=== PATIENT | female | born 1930 | race Caucasian/White ===

== ENCOUNTER → 2017-05-28 | Outpatient (CLI) | payer OTHER, MEDICARE ==
[~2017-05-28] MED LIST: ADVAIR HFA115 MCG/21 INH; AMARYL2 MG PO; ASPIR 8181 MG PO; CALCIUM 600 +1 EAC1 PO; ENOXAPARIN30 MG/0.1 SUBQ; FISH OIL 1,001000 M2 PO; IRBESARTAN150 MG PO; KLOR-CON 1010 MEQ PO; MAGOX 400400 MG PO; METFORMIN HCL500 MG PO; NOVOLOG100 UNIT/1 SUBQ; OMEPRAZOLE40 MG PO; SIMVASTATIN40 MG PO; SLO-NIACIN500 MG PO; TEARS NATURALE1 EACH OPHTHALMIC; TUSSIN COUGH15 MG; VITAMIN D1000 UNI1 PO; WELLBUTRIN XL300 MG PO; ZOCOR20 MG PO
== END ==
LOC: RAD 02:58
DX: Z12.31 Encounter for screening mammogram for malignant neoplasm of breast (principal)

== ENCOUNTER 2018-11-04 15:12 | Emergency (ER) | payer OTHER, MEDICARE ==
[~2018-11-04] VITALS: Ht 157.5 cm; Wt 65.8 kg
[2018-11-04] MEDS ORDERED: TRAMADOL 50 MG50 MG PO (17:06)
[2018-11-04] MEDS ORDERED: AUGMENTIN 500-1 EACH PO (17:06)
[2018-11-04 17:09] LABS: HEMATOCRIT 35.9 % (37.0-47.0); HEMOGLOBIN 11.9 gm/dL (12.0-15.0); MCH 29.6 pg (26.0-34.0); MCHC 33.1 g/dL (28.0-37.0); MCV 89.5 fL (80.0-100.0); PLATELET COUNT 223 thou/uL (150-400); RBC 4.01 mil/uL (4.20-5.00); RDW 14.8 % (10.5-14.5); WBC 7.3 thou/uL (4.0-11.0)
[2018-11-04 17:28] LABS: CALCIUM 10.1 mg/dL (8.5-10.1); CREATININE 1.1 mg/dL (0.6-1.0); POTASSIUM 3.8 mmol/L (3.5-5.1)
[2018-11-04 17:30] VITALS: BP 163/81
[2018-11-04 17:33] LABS: ALBUMIN 3.6 g/dL (3.4-5.0); TOTAL BILIRUBIN 0.3 mg/dL (<0.1-1.0); TOTAL PROTEIN 7.4 g/dL (6.4-8.2)
[2018-11-04 17:37] LABS: ANISOCYTOSIS 1+
== END 2018-11-04 19:46 | disposition home or self-care (01) ==
LOC: ER 15:12
PROVIDERS: Emergency Medicine
DX: L03.116 Cellulitis of left lower limb (principal); I10 Essential (primary) hypertension; J45.909 Unspecified asthma, uncomplicated; K21.9 Gastro-esophageal reflux disease without esophagitis; E11.9 Type 2 diabetes mellitus without complications; Z86.718 Personal history of other venous thrombosis and embolism; Z88.5 Allergy status to narcotic agent; Z96.651 Presence of right artificial knee joint; Z79.4 Long term (current) use of insulin

== ENCOUNTER 2020-05-26 08:23 | Inpatient (IN) | payer OTHER, MEDICARE ==
[~2020-05-26] VITALS: Ht 154.9 cm; Wt 80.1 kg
[2020-05-26 08:23] VITALS: BP 146/80
[~2020-05-26 08:23] MED LIST changes: +AUGMENTIN 500-1 EACH PO; +TRAMADOL 50 MG50 MG PO
[2020-05-26 09:17] LABS: ABSOLUTE NEUTROPHILS 4.3 thou/uL (1.4-8.2); BASOPHILS 0.3 % (0.0-2.0); HEMATOCRIT 33.8 % (37.0-47.0); LYMPHOCYTES 12.1 % (24.0-44.0); MCH 27.3 pg (26.0-34.0); MCHC 32.4 g/dL (28.0-37.0); MCV 84.1 fL (80.0-100.0); MONOCYTES 8.2 % (1.0-8.0); PLATELET COUNT 184 thou/uL (150-400); POLYS 79.4 % (36.0-66.0); RBC 4.02 mil/uL (4.20-5.00); RDW 15.3 % (10.5-14.5); WBC 5.4 thou/uL (4.0-11.0)
[2020-05-26 10:45] LABS: CALCIUM 9.6 mg/dL (8.5-10.1); CREATININE 1.1 mg/dL (0.6-1.0)
[2020-05-26 10:46] LABS: POTASSIUM 3.9 mmol/L (3.5-5.1)
[2020-05-26 11:02] LABS: ALBUMIN 3.4 g/dL (3.4-5.0); TOTAL BILIRUBIN 0.4 mg/dL (0.2-1.0); TOTAL PROTEIN 7.6 g/dL (6.4-8.2); TROPONIN-I 0.22 ng/mL (<0.06)
[2020-05-26 12:17] LABS: ALBUMIN 3.4 g/dL (3.4-5.0); TOTAL PROTEIN 7.5 g/dL (6.4-8.2)
[2020-05-26 13:12] LABS: TSH 0.692 uIU/mL (0.358-3.740)
[2020-05-26 14:19] VITALS: BP 141/62
[2020-05-26 14:46] VITALS: BP 141/62
[2020-05-26 15:32] VITALS: BP 164/76
--- NOTE | 2020-05-26 16:04 | EKG ---
[facility] [place] [address] ELECTROCARDIOGRAM REPORT Name: SANDRA LORENZANA Room #: 351-P ADM IN M.R.#: [id number] Admission: 05/26/20 Attend Phys: Charles Mcleod MD Discharge: Date of : 32 Report #: [id number] THIS REPORT FOR: cc: Luis Lazo,Spenser Lewis MD [facility] THIS REPORT FOR: //name// [facility] ED Test Date: 2020-05-26 Test Time: 08:50:17 Pat Name: SANDRA LORENZANA Department: Room: 351 Gender: F Editor: KF : 1930 Requested By: Ehsan Alvarenga Order Number: [id number] MD: Spenser Gillette Measurements Intervals [place] Rate: 88 P: 23 FL: 180 QRS: 4 QRSD: 82 T: 4 QT: 352 QTc: 426 Interpretive Statements Sinus arrhythmia Probable left atrial enlargement Borderline T wave abnormalities Compared to ECG 08/15/2014 14:49:06 T-wave abnormality now present Sinus rhythm no longer present Electronically Signed On 05-26-2020 16:04:01 CDT by Spenser Gillette [email or web address] <ELECTRONICALLY SIGNED> By: Spenser Gillette MD, FACC 05/26/20 1604 0850 Spenser Gillette MD, [facility] /E[facility]
[2020-05-26 16:58] VITALS: BP 164/76
--- NOTE | 2020-05-26 19:14 | NUR ---
PATIENT ADMITTED TO ROOM AT THIS TIME. SHE IS ALERT ORIENTED TO SELF. DOES NOT SEEM TO BE IN PAIN OR DISTRESS. PLEASANT WITH CARE. RESPIRATONS ARE EVEN AND NON LABORED. WILL CONT WITH PLAN OF CARE.
[2020-05-26 19:15] VITALS: BP 161/76
[2020-05-27 03:58] VITALS: BP 154/63
[2020-05-27 05:56] LABS: HEMOGLOBIN 10.4 gm/dL (12.0-15.0); MCH 26.8 pg (26.0-34.0); MCHC 31.6 g/dL (28.0-37.0); MCV 84.6 fL (80.0-100.0); RBC 3.9 mil/uL (4.20-5.00); RDW 15.7 % (10.5-14.5); WBC 5.6 thou/uL (4.0-11.0)
[2020-05-27 06:49] LABS: CALCIUM 8.5 mg/dL (8.5-10.1); MAGNESIUM 1.8 mg/dL (1.8-2.4); POTASSIUM 3.7 mmol/L (3.5-5.1)
[2020-05-27 08:21] VITALS: BP 186/70
--- NOTE | 2020-05-27 08:54 | NUR ---
WOUND CARE CONSULT; DUE TO COVID PRECAUTIONS LIMITED ASSESSEMENT, DISCUSSED SKIN/WOUND STATUS W/ BAG SEWER FCO, STATES PT HAS NO WOUNDS, SOME REDDNESS SACRAL AREA, NO PHOTO ON CHART, SUGGESTED TO TAKE PHOTO TODAY, LIMITED MOBILITY, NEED FOR LOW AIR LOSS PUMP TO BED, AND PROTECTIVE CREAM, IE Z GUARD PRN SACRAL AREA, BAG SEWER UNSURE IF PT INCONT RECOMMENDATIONS; ORDERED LOW AIR LOSS PUMP FOR BED, ZGUARD PRN SACRAL AREA, ENCOURAGE TURNING PRESSURE RELIEF, OFF LOADING, TO RECONSULT DEHYDROGENATION CONVERTER OPERATOR IF SKIN BREAKDOWN PRESENT BAG SEWER AWARE
--- NOTE | 2020-05-27 09:27 | NUR ---
Nutrition: Low january score indicated however pt with no open wounds. + redness to sacrum. Pt admit post syncope,fall, rhabdomyolosis, elevated Troponin. Cardiology/neuro consult. Pt hx of DM, dementia, HTN. From [facility] facility. No intake records yet and nsg reports pt has been sleepy at breakfast time. Did not visit due to COVID + status. No weight hx. Due to K+, BUN, creat all WNL, would rec D/C renal restrictions and just order Heart healthy. BG well controlled. Offer Glucerna daily til po trends identified. Consider low risk at this time.
[2020-05-27 12:07] VITALS: BP 146/71
[2020-05-27 12:42] LABS: TROPONIN-I 0.24 ng/mL (<0.06)
[2020-05-27 15:14] VITALS: BP 140/55
--- NOTE | 2020-05-27 15:31 | NUR ---
PT ADMITTED RELATED TO COVID +, UNWITNESSED FALL, RHABDO. CM REVIEWED CHART AND SPOKE WITH CARE TEAM. CM ATTEMPTED PC TO PT'S ROOM WIHT NO ANSWER. CM ATTEMPTED PC TO PT'S SON IN [place] WITH NO ANSWER AND NO OPTION FOR VM. CM CALLED AND SPOKE WITH PT'S SISTER WHO WAS LISTED EMERGANCY CONTACT. SHE INDICATED [facility] SHE INDICATED THAT [facility] HAD BEEN GOING TO START HH SERVICES WITH PT PRIOR TO ADMISSION. SHE INDICATED THAT PT HAD A 4WW FOR HOME USE AND THAT SHE HADN'T SPOKEN TO PT IN A WHILE PT'S HAS TROUBLE WITH HER CELL PHONE AND SHE CAN'T VISIT PT. 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 SHE PROVIDED PHONE NUMBER AND CONTACT FOR [facility] . PT AND OT WORKED WITH PT AND THEY ARE [facility] POST ACUTE CARE STAY UPON DC. CM TO CONTINUE TO TRY TO REACH SON NÉSTOR PHAM TO DISCUSS POSSIBLE SNF OPTIONS.
--- NOTE | 2020-05-27 19:00 | NUR ---
DR ENGLE CALLED, ORDERED TO HOLD THE GLIMAPRIDE. SECONDARY TO LOW BLOOD SUGARS. ORDERED TO DECREASE THE IV FLUIDS TO 75/HR
[2020-05-27 20:03] VITALS: BP 154/75
[2020-05-28 03:16] VITALS: BP 154/75
[2020-05-28 07:36] LABS: HEMATOCRIT 34.5 % (37.0-47.0); HEMOGLOBIN 10.9 gm/dL (12.0-15.0); MCH 26.6 pg (26.0-34.0); MCHC 31.5 g/dL (28.0-37.0); MCV 84.5 fL (80.0-100.0); RBC 4.09 mil/uL (4.20-5.00); RDW 15.8 % (10.5-14.5); WBC 6.1 thou/uL (4.0-11.0)
--- NOTE | 2020-05-28 07:43 | NUR ---
MORE STRONG TONIGHT. TALKING MORE, STILL CONFUSED. IV access lost early am. unablt to get access. iv therapy message left. careplan reveiwed
[2020-05-28 07:49] LABS: CREATININE 0.7 mg/dL (0.6-1.0); MAGNESIUM 1.7 mg/dL (1.8-2.4); POTASSIUM 3.7 mmol/L (3.5-5.1)
[2020-05-28 11:44] VITALS: BP 135/77
[2020-05-28 12:41] LABS: TROPONIN-I 0.29 ng/mL (<0.06)
[2020-05-28 15:16] VITALS: BP 151/72
--- NOTE | 2020-05-28 18:03 | NUR ---
RN HAS ASSUMED PT'S CARE AT 0700AM, PT KNOWS HER NAME AND BIRTHDAY, BUT PT IS CONFUSED AT TIME, PT IS CONTIUNING IV ABX AND ISOLATION ( FOR POSITIVE COVID ), PT NEEDS HELP CHANGING POSITION, RN HAS CALLED DR TO REPORT PT'S FEVER , NEW ORDER HAS RECEIVED, PT DOES NOT HAVE SOB AT THIS TIME, PT STARTS PPN AT 80ML/HR.
[2020-05-28 20:21] VITALS: BP 153/68
[2020-05-29] VITALS (7 sets, daily range): BP systolic 130–155; BP diastolic 49–89
[2020-05-29 01:01] LABS: URINE BILIRUBIN NEGATIVE (Negative); URINE BLOOD 2+ (Negative); URINE CLARITY CLEAR; URINE COLOR YELLOW; URINE GLUCOSE-RANDOM* NEGATIVE (Negative); URINE KETONES NEGATIVE (Negative); URINE LEUKOCYTES-REFLEX NEGATIVE (Negative); URINE NITRITE-REFLEX NEGATIVE (Negative); URINE PROTEIN (DIPSTICK) TRACE (Negative); URINE UROBILINOGEN 0.2 E.U./dl (0.2-1.0)
[2020-05-29 01:35] LABS: CASTS None Seen /LPF (None Seen); MUCUS None Seen strn/LPF (None Seen); SQUAMOUS 0-3 Few /LPF (0-3); URINE RBC 0-2 Rare /HPF (0-2); URINE WBC-REFLEX None Seen /HPF (0-5)
[2020-05-29 01:36] LABS: BACTERIA-REFLEX None Seen /HPF (None Seen); CRYSTALS None Seen /LPF (None Seen)
[2020-05-29 04:15] LABS: ABSOLUTE NEUTROPHILS 4.1 thou/uL (1.4-8.2); BASOPHILS 0.3 % (0.0-2.0); EOSINOPHILS 0.1 % (0.0-3.0); HEMOGLOBIN 10.2 gm/dL (12.0-15.0); LYMPHOCYTES 13.4 % (24.0-44.0); MCHC 32.8 g/dL (28.0-37.0); MCV 82.5 fL (80.0-100.0); MONOCYTES 6.5 % (1.0-8.0); PLATELET COUNT 172 thou/uL (150-400); POLYS 79.7 % (36.0-66.0); RBC 3.76 mil/uL (4.20-5.00); RDW 15.5 % (10.5-14.5); WBC 5.2 thou/uL (4.0-11.0)
[2020-05-29 04:25] LABS: INR 1.1; PROTIME 10.9 Seconds (9.3-11.4)
[2020-05-29 04:30] LABS: FIBRINOGEN 526.3 mg/dL (210-360)
[2020-05-29 04:32] LABS: ALBUMIN 2.3 g/dL (3.4-5.0); POTASSIUM 3.3 mmol/L (3.5-5.1); TOTAL BILIRUBIN 0.2 mg/dL (0.2-1.0); TOTAL PROTEIN 6.2 g/dL (6.4-8.2)
[2020-05-29 04:43] LABS: CALCIUM 8.6 mg/dL (8.5-10.1)
[2020-05-29 05:36] LABS: GLYCOHEMOGLOBIN (HGB A1C) 7.7 % (4.8-5.6)
--- NOTE | 2020-05-29 07:23 | NUR ---
ASSUMED CARE AT 1900. PT SLIGHTLY IMPULSIVE R/T CONFUSION, WANTED TO "GO UPSTAIRS TO BED" REQUIRED MULTIPLE REDIRECTIONS, MADE SURE BED ALARM WAS ALWAYS ON. PT HAD AUDIBLE WHEEZING WITH COARSE LUNG SOUNDS; O2 SATS BARELY 91% ON RA, AND PT EASILY DYSPNIC W/ MINIMAL ACTIVITY. PLACED ON 2L O2 AND SAT TJ TO 95%. PT ALSO EASILY EMOTIONAL/TEARFUL, WHICH MADE WHEEZING/SOB WORSE. OBTAINED ORDER FOR KIRSTIN TO ACCURATELY MEASURE I&O IN CASE OF FLUID OVERLOAD, WELL PRN MDI BREATHING TX FOR SOA. NEW IV PLACED TO LEFT FA FOR REMDESIVIR INFUSION. ATTEMPTED TO CALL DPOA/SON ANKIT, BUT HIS PHONE RANG WITHOUT ANY VOICEMAIL; UNABLE TO OBAIN CONSENT FOR PLASMA TRANSFUSION. PT HAD IRREGULAR RHYTHM, INTIALLY SR W/ FREQ PAC'S THAT GRADUALLY BECAME MORE SA OVERNIGHT. ELEVATED BNP THIS AM, OBTAINED ORDER FOR ONE TIME DOSE OF LASIX AND GAVE AT 0600. NO OTHER CONCERNS, SHIFT REPORT GIVEN AT 0700.
--- NOTE | 2020-05-29 10:09 | NUR ---
covid +, discussed during prime time via phone call. started on remdesivir last night. going to need snf at [facility].
--- NOTE | 2020-05-29 19:40 | NUR ---
RN HAS RESUMED PT'S CARE AT 0700AM, PT KNOWS HER NAME , BUT PT IS CONFUSED AND SHE CANNOT FOLLOW SOME COMMANDS, PT STILL IS POOR EATING AND DRINKING, PT IS CONTINUING PPN @ 80ML/HR, AND IV ABX, PT'S SON HAS CONSENTED CONVALESCENT PLASMA TREANSFUSION FOR THIS PT, PT'S VS ARE STABLE BY THIS TIME.
[2020-05-30 05:31] VITALS: BP 151/59
[2020-05-30 05:52] LABS: HEMATOCRIT 29.9 % (37.0-47.0); HEMOGLOBIN 9.7 gm/dL (12.0-15.0); MCH 26.9 pg (26.0-34.0); MCHC 32.4 g/dL (28.0-37.0); MCV 83.1 fL (80.0-100.0); RBC 3.6 mil/uL (4.20-5.00); RDW 15.3 % (10.5-14.5)
[2020-05-30 06:22] LABS: CREATININE 1.1 mg/dL (0.6-1.0); MAGNESIUM 2.2 mg/dL (1.8-2.4); POTASSIUM 3.2 mmol/L (3.5-5.1)
[2020-05-30 07:10] VITALS: BP 154/75
--- NOTE | 2020-05-30 07:34 | NUR ---
ASSUMED CARE AT 1900. PT DROWSY, HELD HS PO MEDS. NO PAIN OR NAUSEA. CONTINUED TO BE VERY COARSE WITH SOME CRACKLES IN UPPER LUNGS. LARGE OUTPUT FROM FULTON. GAVE CONVALESCENT PLASMA, NO REACTIONS NOTED. HS BLOOD SUGAR UPPER 200'S, RECHECKED TO VERIFY SINCE IT WAS MUCH HIGHER THAN PREVIOUS BS; OBTAINED ORDER TO START Q6 SLIDING SCALE; BS INCREASED ABOVE 300 THIS AM. NO OTHER CONCERNS, SHIFT REPORT GIVEN 0700.
--- NOTE | 2020-05-30 10:24 | NUR ---
WOUND CARE F/U DUE TO COVID ISOLATION LIMITED ASSESSMENT, DISCUSSED SKIN STATUS W/ VENIPUNCTURIST KERRY, STATES NO WOUNDS, PER NURSE SACRAL AREA LORI BUT NO BREAKDOWN, USING ZGUARD DAILY AND PRN, LOW AIR LOSS PUMP ON BED RECOMMENDATIONS CONT POC OF ZGUARD, LOW AIR LOSS PUMP TO BED, PRESSURE RELIEF, OFF LOADING, REPORT ANY SKIN BREAKDOWN TO WOUND MANAGER CUSTOMER RN AWARE
[2020-05-30 11:05] LABS: ALBUMIN 2.3 g/dL (3.4-5.0); DIRECT BILIRUBIN < 0.1 mg/dL (<0.1-0.2); SGOT 58 U/L (15-37); SGPT 48 U/L (30-65); TOTAL BILIRUBIN 0.3 mg/dL (0.2-1.0); TOTAL PROTEIN 6.3 g/dL (6.4-8.2)
[2020-05-30 12:43] VITALS: BP 160/68
[2020-05-30 16:30] VITALS: BP 151/62
--- NOTE | 2020-05-30 16:34 | NUR ---
SW reviewed chart and spoke with nursing. Pt remains in Enhanced Isolation due to COVID-19. Pt is on 2L of O2 and on IV abx/IV steroids. Pt is completing course of Remdesivir. TERESA spoke with pt's son, Osvaldo, via phone. Introduced role of SW and discussed post-acute plans. [facility] has been to [facility] past. SW discussed barrier to SNF placement is pt's COVID positive status. Pt's son verbalized understanding and would like referral to [facility]. SW also discussed [facility]. Pt's son is agreeable with referral to [place] if needed. SW is following to assist as needed with discharge planning.
[2020-05-30 19:26] VITALS: BP 135/60
--- NOTE | 2020-05-30 21:13 | NUR ---
PT RESTING IN BED WATCHING TV. EYE CONTACT WHILE NURSE TALKING WITH PT. PT ONLY ANSWERS DIRECT SIMPLE QUESTIONS. FULTON TO DD, IVF AND PPN INTACT. SCDS INTACT. BED ALARM ON. PT REPOSITIONED BY NURSE AND PT ASSISTED. PT HAD HS SNACK. LUNGS WITH CRACKLES, O2 3L, BLE EDEMA. PALE SKIN TONE.
[2020-05-31 01:59] VITALS: BP 150/57
--- NOTE | 2020-05-31 02:05 | NUR ---
PT RESTLESS IN BED, PULLING OFF NC OXYGEN, TELE, PULLING AT IVS AND GOWN. PT REPOSITIONED, ADL CARE PROVIDED. RR 24, O2 SAT REMAINS 93% ON 3L. LUNGS MORE WET THAN EARLIER IN SHIFT. PROVIDER UPDATED RE LUNG SOUNDS AND RR.
[2020-05-31 06:28] LABS: ALBUMIN 2.2 g/dL (3.4-5.0); DIRECT BILIRUBIN 0.1 mg/dL (<0.1-0.2); TOTAL BILIRUBIN 0.3 mg/dL (0.2-1.0); TOTAL PROTEIN 6.2 g/dL (6.4-8.2)
[2020-05-31 07:10] VITALS: BP 151/66
[2020-05-31 08:16] LABS: HEMATOCRIT 29.6 % (37.0-47.0); HEMOGLOBIN 9.5 gm/dL (12.0-15.0); MCH 26.8 pg (26.0-34.0); MCHC 32.2 g/dL (28.0-37.0); MCV 83.2 fL (80.0-100.0); RBC 3.56 mil/uL (4.20-5.00); RDW 15.6 % (10.5-14.5); WBC 9.2 thou/uL (4.0-11.0)
[2020-05-31 08:32] LABS: CALCIUM 9.5 mg/dL (8.5-10.1); CREATININE 0.9 mg/dL (0.6-1.0); MAGNESIUM 2.3 mg/dL (1.8-2.4); POTASSIUM 3.4 mmol/L (3.5-5.1)
[2020-05-31 11:09] VITALS: BP 171/65
[2020-05-31 12:06] VITALS: BP 163/65
--- NOTE | 2020-05-31 14:13 | NUR ---
TERESA reviewed chart and spoke with nursing and attending physician. Pt remains in Enhanced Isolation due to COVID-19. Pt is afebrile and on 3L of O2. Pt is on IV abx and IV steroids. Completing course of Remdesivir. Pt being tested for c.diff. Pt will need post-acute placement. TERESA spoke with Ameena at [facility], who states they are not accepting new COVID pts at this time. TERESA contacted [facility] liaison, who states they are able to accept new COVID pts. funeral planner to fax referral. TERESA spoke with pt's son, Osvaldo, via phone to provide update. Osvaldo is aware of discharge plan. TERESA received call from Sergio at [facility]. Update provided regarding pt's discharge disposition. TERESA is following to assist as needed with discharge planning.
[2020-05-31 15:05] VITALS: BP 160/51
--- NOTE | 2020-05-31 16:07 | NUR ---
FAXED REFERRAL TO [facility] SPOKE WITH SANJANA IN ADM SHE RECEIVED REFERRAL AND WILL REVIEW. DP TO FOLLOW.
--- NOTE | 2020-05-31 18:27 | NUR ---
PT CARE ASSUMED AT 0700, PT ALERT AND ORIENTED X3, FORGEFTFULA DN IMPULSIVE AT TIMES. PT IS ON 3L OF 02, WHEEZY AND SOB WITH EXERTION AT TIMES. PT PULLS OUT NC AT TIMES EDUCATION IS REINFORCED AND FREQUENT CHECKS ON PT. REPOSITONED EVERY 2 HOURS. PT CONTINUES TO HAVE DIARRHEA, STOOL SAMPLE SENT TO LAB TO TET FOR C-DIFF. CALL LIGHT AND TABLE WITHIN REACH. BED AT LOWEST LEVEL WITH ALARM.
[2020-05-31 19:10] VITALS: BP 177/68
--- NOTE | 2020-05-31 20:22 | NUR ---
PT RESTING IN BED MUMBLING SPEECH IN RESPONSE TO QUESTIONS. PT PICKING AT AIR, POOR EYE CONTACT. PT HAD PRN ATIVAN PRIOR TO WHEEL POLISHER STARTING. FULTON TO DD, IVF INTACT. BLE EDEMA, PALE SKIN TONE, COARSE CRACKLES LUNGS, NO COUGH OR AUDIBLE WHEEZES, DISTENDED ABD. PT REPOSITIONED BY STAFF, BUT IS RESTLESS AND REMOVES PILLOWS AND REPOSITIONS SELF. BED ALARM ON.
[2020-06-01 04:08] VITALS: BP 169/90
[2020-06-01 06:37] VITALS: BP 157/68
[2020-06-01 06:37] LABS: HEMATOCRIT 31.5 % (37.0-47.0); MCH 26.3 pg (26.0-34.0); MCHC 31.7 g/dL (28.0-37.0); MCV 82.9 fL (80.0-100.0); RBC 3.79 mil/uL (4.20-5.00); RDW 15.3 % (10.5-14.5); WBC 11.1 thou/uL (4.0-11.0)
[2020-06-01 06:46] LABS: CALCIUM 9.4 mg/dL (8.5-10.1); CREATININE 0.8 mg/dL (0.6-1.0); MAGNESIUM 2.1 mg/dL (1.8-2.4)
[2020-06-01 06:50] LABS: ALBUMIN 2.5 g/dL (3.4-5.0); DIRECT BILIRUBIN 0.1 mg/dL (<0.1-0.2); TOTAL BILIRUBIN 0.3 mg/dL (0.2-1.0); TOTAL PROTEIN 6.5 g/dL (6.4-8.2)
[2020-06-01 07:23] VITALS: BP 153/66
[2020-06-01 11:05] VITALS: BP 149/66
--- NOTE | 2020-06-01 11:12 | NUR ---
ASSUMED PATIENT CARE THIS AM AT APPRXIMATELY 0700. PATIENT IS AWAKE, DISORIENTED AND CONFUSED. PATIENT IS IMPULSIVE/ ATTEMPTING TO GET OUT OF BED, TAKING OFF O2. BREATHING LABORED AND DESATS WHEN SHE GETS WORKED UP. PATIENT TOLERATED AM MEDS WELL WITH WATER, ATIVAN GIVEN FOR ANXIETY THIS AM AND TOLERATED WELL. RESTING IN BED. O2 SAT INCREASED TO 96% ON 3L WHEN RESTING IN BED. SPOKE WITH MD AND PLAN TO DC TO A SNF WHEN PATIENT IS STABLE. FULTON CATHETER IN PLACE, CATHETER CARE COMPLETED AND TOLERATED WELL. REINFORCE NEED FOR PATIENT TO STAY CALM AND STAY IN BED. REPOSITIONING PATIENT Q2H AND HEELS OFFLOADED THIS SHIFT.
--- NOTE | 2020-06-01 11:39 | NUR ---
SW reviewed chart and spoke with nursing and attending physician. Pt remains in Enhanced Isolation due to COVID-19. Pt is afebrile and on 3L of O2. Pt is on IV abx/IV steroids and completing course of Remdesivir. Anticipated disharge to [facility] is anticipated for Saturday. TERESA updated [facility] post-acute liaison. TERESA is following to assist as needed with discharge planning.
[2020-06-01 15:37] VITALS: BP 155/71
[2020-06-01 20:17] VITALS: BP 144/86
[2020-06-02 05:31] VITALS: BP 174/74
--- NOTE | 2020-06-02 06:16 | NUR ---
ASSUMED CARE AT 1900. PT DROWSY BUT AROUSEABLE, ALERT ONLY TO SELF. DENIES PAIN OR NAUSEA. CRACKLES ON LEFT SIDE, WITH SOME FAINT WHEEZES IN THE LOWER LEFT. HAS 2+ EDEMA IN RIGHT FOREARM THAT HAS EXTENDED INTO THE HAND AND THE UPPER ARM; FIRM AND PITTING, REMOVED IV FROM R FA AND PLACED NEW IV TO LEFT WRIST. SPOKE WITH CHELA CASTREJON, SHE RECOMMENDED HAVING THE DAY PHYSICIAN LOOK AT ARM AND DECIDE ON A DOPPLER TO R/O DVT. NO OTHER CONCERNS, WILL CONTINUE TO MONITOR.
[2020-06-02 07:55] VITALS: BP 152/58
--- NOTE | 2020-06-02 08:11 | NUR ---
ASSUMED PATIENT CARE THIS AM AT APPROXIMATELY 0700. PATIENT RESTING/SLEEPING IN BED. PATIENT CONFUSED AND OVERNIGHT PULLED OUT VARIOUS IVS. LATEST ONE IN LEFT CHEST AND PATIENT PULLED OUT PRIOR TO RECIEVING AM MEDICATIONS. PAGED IV TEAM FOR NEW ACCESS. TOLERATING PO MEDS WELL. O2 SAT STABLE ON 3LNC.
[2020-06-02 09:21] LABS: HEMOGLOBIN 10.5 gm/dL (12.0-15.0); MCH 26.7 pg (26.0-34.0); MCV 83.4 fL (80.0-100.0); PLATELET COUNT 241 thou/uL (150-400); RBC 3.95 mil/uL (4.20-5.00); RDW 15.4 % (10.5-14.5); WBC 8.7 thou/uL (4.0-11.0)
[2020-06-02 09:32] LABS: CALCIUM 8.9 mg/dL (8.5-10.1); POTASSIUM 3.1 mmol/L (3.5-5.1)
[2020-06-02 10:16] LABS: ABSOLUTE NEUTROPHILS 6.8 thou/uL (1.4-8.2); ANISOCYTOSIS 1+; METAMYELOCYTES 1 %; OVALOCYTES FEW
[2020-06-02 11:19] VITALS: BP 122/70
--- NOTE | 2020-06-02 13:34 | NUR ---
TERESA reviewed chart and spoke with nursing and attending physician. Pt remains in Enhanced Isolation due to COVID-19. Pt is afebrile and on 3L of O2. Pt is on IV abx/IV steroids. Pt has finished her course of Remdesivir. Discharge to [facility] is anticipated for tomorrow. TERESA spoke with pt's son, Osvaldo, via phone to provide update. Pt's son is aware and in agreement with plan. TERESA updated [facility] post-acute liaison. TERESA is following to assist as needed with discharge planning.
[2020-06-02 15:41] VITALS: BP 161/76
[2020-06-02 20:37] VITALS: BP 171/85
[2020-06-02 22:30] VITALS: BP 166/80
[2020-06-03 04:11] VITALS: BP 169/88
--- NOTE | 2020-06-03 05:11 | NUR ---
ASSUMED CARE AT 1900. LUNGS CONTINUE TO BE COARSE WITH CRACKLES MORE PRESENT ON LEFT; DECREASED O2 FROM 3L TO 2L, PT STILL SATS MID 90'S LONG SHE KEEPS THE 2L ON. HS BLOOD SUGAR 298, GAVE 12 UNITS LISPRO. PLACED LIMB ALERT TO RIGHT ARM D/T SUPEFICIAL BLOOD CLOT PER ULTRASOUND; RIGHT ARM CONTINUES TO HAVE 3+ EDEMA; KEEP PLACING A PILLOW TO ELEVATE THE ARM BUT PT OFTEN PULLS THE PILLOW OUT. FREQ TURNS; PLACED OPTIFOAM ON RIGHT ELBOW TO COVER RED, BLISTERED SPOT; TWO SOFT/LOOSE BM'S OVERNIGHT. NO OTHER CONCERNS, WILL CONTINUE TO MONITOR.
[2020-06-03 05:25] LABS: HEMATOCRIT 33.1 % (37.0-47.0); HEMOGLOBIN 10.7 gm/dL (12.0-15.0); MCH 26.4 pg (26.0-34.0); MCHC 32.4 g/dL (28.0-37.0); MCV 81.3 fL (80.0-100.0); RBC 4.07 mil/uL (4.20-5.00); RDW 15.2 % (10.5-14.5)
[2020-06-03 05:53] LABS: CALCIUM 9.2 mg/dL (8.5-10.1); POTASSIUM 3.2 mmol/L (3.5-5.1)
[2020-06-03 07:37] VITALS: BP 176/87
[2020-06-03 11:15] VITALS: BP 163/79
[2020-06-03] MEDS ORDERED: METOPROLOL TART25 MG PO (12:04)
[2020-06-03] MEDS ORDERED: PREDNISONE 10 M10 M1 PO (12:07)
[2020-06-03] MEDS ORDERED: AUGMENTIN 875-1 EACH PO (12:30)
--- NOTE | 2020-06-03 12:43 | NUR ---
PT CARE ASSUMED AT 0700, PT ALERT AND ORIENTED X2, FORGETFULA AND CONFUSED AT TIMES. PT IS ON ROOM AIT NOW OXYGEN SAT AROUN 92%, NO SIGNS OF DISTRESS NOTED. POTASSIUM 3.2, REPLACED PER DR. ADAMS ORDER. PT IS INCONTINENT, CLEAN UP NEED AND REPISTIONED EVERY 2 HOURS. CALL LIGH AND TABLE WITHIN REACH. BED AT LOWEST LEVEL WITH ALARM ON.
--- NOTE | 2020-06-03 13:53 | NUR ---
DISCHARGE NOTE: TERESA reviewed chart and spoke with nursing and attending physician. Pt remains in Enhanced Isolation due to COVID-19. Pt is medically stable for discharge to [facility] SN[facility] today. TERESA faxed finalized discharge orders/summary and [id number] form to [facility] for review. Stretcher van transportation scheduled for [id number] per facility's arrangements. TERESA spoke with pt's son, Basilia, via phone to provide update and notify of transportation time. Basilia is aware and in agreement with discharge plan. TERESA updated Ngozi at [facility] as well. [facility] was following pt at [facility] prior to admission to [facility]. Chart copy requested. Nursing provided with number to call report. No additional SW needs identified at this time, but is available to assist should needs nicole.
--- NOTE | 2020-06-03 17:20 | NUR ---
1450 [facility] CALLED AND REPORT GIVEN TO TYSON. PT IV TAKEN OUT. FULTON REMAINS IN PLACE, SW OKAY WITH PT GOING TO [facility] WITH KIRSTIN. BELONGINGS OACKED AND CHART COPY WITH TRANSPORTATION.
== END 2020-06-03 15:25 | DRG 177 ==
LOC: ER 08:23 → EROBS 12:00 → 3W 12:00
PROVIDERS: Emergency Medicine; Hospitalist; Psychiatry & Neurology Neurology; Specialist; ADMIT Internal Medicine; ATTEND Internal Medicine
PROC: XW033E5 Introduction of Remdesivir Anti-infective into Peripheral Vein, Percutaneous Approach, New Technology Group 5 (ICD-10-PCS; 2020-05-28)
PROC: XW13325 Transfusion of Convalescent Plasma (Nonautologous) into Peripheral Vein, Percutaneous Approach, New Technology Group 5 (ICD-10-PCS; principal; 2020-05-29)
DX: U07.1 COVID-19 (principal); J96.01 Acute respiratory failure with hypoxia; G92 Toxic encephalopathy; J12.89 Other viral pneumonia; M62.82 Rhabdomyolysis; I82.621 Acute embolism and thrombosis of deep veins of right upper extremity; R79.89 Other specified abnormal findings of blood chemistry; J45.909 Unspecified asthma, uncomplicated; K21.9 Gastro-esophageal reflux disease without esophagitis; Z96.651 Presence of right artificial knee joint; N18.9 Chronic kidney disease, unspecified; E78.00 Pure hypercholesterolemia, unspecified; F03.90 Unspecified dementia, unspecified severity, without behavioral disturbance, psychotic disturbance, mood disturbance, and anxiety; E78.5 Hyperlipidemia, unspecified; E11.22 Type 2 diabetes mellitus with diabetic chronic kidney disease; D64.9 Anemia, unspecified; I12.9 Hypertensive chronic kidney disease with stage 1 through stage 4 chronic kidney disease, or unspecified chronic kidney disease; R19.7 Diarrhea, unspecified; I49.8 Other specified cardiac arrhythmias; Z98.49 Cataract extraction status, unspecified eye; Z88.6 Allergy status to analgesic agent; Z79.82 Long term (current) use of aspirin; Z79.899 Other long term (current) drug therapy; I49.9 Cardiac arrhythmia, unspecified
CPT/HCPCS: 10879